=== PATIENT | male | born 1960 | race Caucasian/White ===

== ENCOUNTER 2017-01-25 13:15 | Emergency (ER) | payer MEDICARE, MEDICAID ==
[~2017-01-25] VITALS: Ht 175.3 cm; Wt 117.0 kg
[~2017-01-25 13:15] MED LIST: ASPI-1079 PO; CLOP75TA33 PO; DOCU-150 PO; EZET10TA PO; FOLI1TAB63 PO; OMEP20CA10 PO
[2017-01-25] MEDS ORDERED: LIDOCAINE HCL 1% 20ML VIAL (Pyxis) INJ MC ONE (14:15)
[2017-01-25 14:29] LABS: HEMATOCRIT. 36.8 % (42.0-52.0); HEMOGLOBIN. 12.4 g/dL (14.0-18.0); MEAN CORPUSCULAR HEMOGLOBIN 30.7 pg (28.0-32.0); MEAN CORPUSCULAR VOLUME 91.1 fL (80.0-94.0); PLATELET 254 x1000/uL (130-400); RED BLOOD CELL COUNT 4.04 mill/uL (4.7-6.1); RED CELL DISTRIBUTION WIDTH 14.6 % (11.6-14.6)
[2017-01-25 14:36] LABS: CHLORIDE 90 mEq/L (98-107); INR 1.1; PROTHROMBIN TIME 11.8 sec (9.4-11.6)
[2017-01-25 14:45] LABS: CARBON DIOXIDE 31 mEq/L (21-32)
[2017-01-25 14:51] VITALS: BP 147/59
[2017-01-25 15:53] LABS: PLATELET ESTIMATE NORMAL
== END 2017-01-25 16:33 | disposition home or self-care (01) ==
LOC: ER 13:15
DX: L02.215 Cutaneous abscess of perineum (principal); E11.22 Type 2 diabetes mellitus with diabetic chronic kidney disease; I12.0 Hypertensive chronic kidney disease with stage 5 chronic kidney disease or end stage renal disease; N18.6 End stage renal disease; Z99.2 Dependence on renal dialysis; Z79.82 Long term (current) use of aspirin; Z95.1 Presence of aortocoronary bypass graft; Z89.612 Acquired absence of left leg above knee; Z99.3 Dependence on wheelchair; Z89.421 Acquired absence of other right toe(s)
CPT/HCPCS: 10060; 36415; 80053; 85025; 85610; 99284; J3490; 56405

== ENCOUNTER 2018-06-27 09:18 | Emergency (ER) | payer MEDICARE, MEDICAID ==
[~2018-06-27] VITALS: Ht 175.3 cm; Wt 125.0 kg
[~2018-06-27 09:18] MED LIST changes: -EZET10TA PO; +ZET10 PO
[2018-06-27] MEDS ORDERED: SODIUM CHLORIDE 0.9% 1,000 ML IV NR (13:10)
[2018-06-27] MEDS ORDERED: PIPERACILLIN/TAZ 3.375G PREMIX 50 ML IV ONE (14:15)
[2018-06-27] MEDS ORDERED: VANCOMYCIN 1 G PREMIX 200 ML IV SCH (14:15)
[2018-06-27 14:53] LABS: BASOPHILS % 0.4 % (0.0-2.0); EOSINOPHILS % 0.3 % (0.0-5.0); HEMATOCRIT. 32.7 % (42.0-52.0); HEMOGLOBIN. 10.5 g/dL (14.0-18.0); LYMPHOCYTES % 8.9 % (20.0-50.0); MEAN CORPUSCULAR HEMOGLOBIN 30.6 pg (28.0-32.0); MEAN CORPUSCULAR VOLUME 95.2 fL (80.0-94.0); MONOCYTES % 9.2 % (2.0-8.0); NEUTROPHILS % 81.2 % (40.0-76.0); PLATELET 167 x1000/uL (130-400); RED BLOOD CELL COUNT 3.44 mill/uL (4.7-6.1); RED CELL DISTRIBUTION WIDTH 15.2 % (11.6-14.6)
[2018-06-27 14:59] LABS: PROTHROMBIN TIME 10.1 sec (9.1-11.1)
[2018-06-27 15:00] LABS: CHLORIDE 94 mEq/L (98-107)
[2018-06-27 15:07] LABS: ETHANOL BLOOD < 10 mg/dL
[2018-06-27] MEDS ORDERED: CLINDAMYCIN HCL 150MG CAPSULE PO ONE (15:15)
[2018-06-27 16:45] VITALS: BP 143/65
== END 2018-06-27 16:49 | disposition home or self-care (01) ==
LOC: ER 09:39
DX: M86.142 Other acute osteomyelitis, left hand (principal); E11.22 Type 2 diabetes mellitus with diabetic chronic kidney disease; I25.810 Atherosclerosis of coronary artery bypass graft(s) without angina pectoris; Z99.2 Dependence on renal dialysis; Z98.890 Other specified postprocedural states; Z79.82 Long term (current) use of aspirin; Z79.899 Other long term (current) drug therapy
CPT/HCPCS: 36415; 71045; 73130; 80053; 83605; 85025; 85610; 87040; 93005; 99284; G0482

== ENCOUNTER 2018-06-29 13:40 | Inpatient (IN) | payer MEDICARE, MEDICAID ==
[~2018-06-29] VITALS: Ht 175.3 cm; Wt 127.5 kg
[2018-06-30] MEDS ORDERED: MORPHINE SULFATE 4 MG/ML CPJ (NOT FOR IM USE) IV STA (00:19)
[2018-06-30] MEDS ORDERED: ONDANSETRON HCL 4MG/2ML INJ IV STA (00:19)
[2018-06-30] MEDS ORDERED: PIPERACILLIN/TAZ 3.375G PREMIX 50 ML IV ONE (00:30)
[2018-06-30] MEDS ORDERED: VANCOMYCIN 1 G PREMIX 200 ML IV ONE (00:30)
[2018-06-30] MEDS ORDERED: SODIUM CHLORIDE 0.9% 250 ML IV ONE (00:30)
[2018-06-30 01:01] LABS: BASOPHILS % 0.5 % (0.0-2.0); EOSINOPHILS % 0.4 % (0.0-5.0); HEMATOCRIT. 31.9 % (42.0-52.0); HEMOGLOBIN. 10.4 g/dL (14.0-18.0); LYMPHOCYTES % 10.7 % (20.0-50.0); MEAN CORPUSCULAR HEMOGLOBIN 31.1 pg (28.0-32.0); MEAN CORPUSCULAR VOLUME 95.7 fL (80.0-94.0); MEAN PLATELET VOLUME 9.6 fl (7.4-10.4); MONOCYTES % 8.7 % (2.0-8.0); NEUTROPHILS % 79.7 % (40.0-76.0); PLATELET 200 x1000/uL (130-400); RED BLOOD CELL COUNT 3.33 mill/uL (4.7-6.1)
[2018-06-30 01:05] LABS: CHLORIDE 94 mEq/L (98-107)
[2018-06-30 01:07] LABS: PROTHROMBIN TIME 10.3 sec (9.1-11.1)
[2018-06-30] MEDS ORDERED: INSULIN REGULAR (HUMULIN R) 300UNITS/3ML SUBCUT ONE (01:30)
[2018-06-30] MEDS ORDERED: INSU100I33 SQ (09:34)
[2018-06-30] MEDS ORDERED: INSU100I28 SQ (09:35)
[2018-06-30 09:45] VITALS: BP 152/76
[2018-06-30] MEDS ORDERED: MAGNESIUM/ALUMINUM HYDROXIDE/SIMETHICONE 30ML UDC PO PRN (10:15)
[2018-06-30] MEDS ORDERED: ACETAMINOPHEN 325MG TABLET PO PRN (10:15)
[2018-06-30] MEDS ORDERED: HYDROCODONE/ACETAMINOPHEN 5/325MG TABLET PO PRN (10:15)
[2018-06-30] MEDS ORDERED: CLONIDINE 0.1MG TABLET PO PRN (10:15)
[2018-06-30] MEDS ORDERED: ASPIRIN 81MG TABLET PO SCH (10:15)
[2018-06-30] MEDS ORDERED: DEXTROSE 50% WATER 50ML SYRINGE IV PRN (10:15)
[2018-06-30] MEDS: OMEPRAZOLE 20MG CAPSULE EXTENDED RELEASE PO SCH (10:47)
[2018-06-30] MEDS: EZETIMIBE 10MG TABLET PO SCH (10:47)
[2018-06-30 12:00] VITALS: BP 149/98
[2018-06-30] MEDS ORDERED: VANCOMYCIN 1 G PREMIX 200 ML IV SCH (12:30)
[2018-06-30] MEDS: INS NPH/REG HM 70-30 100 UNITS/ML 10ML VIAL (HUMULIN 70-30) SUBCUT SCH ×2 (12:54→16:57)
[2018-06-30] MEDS ORDERED: CARV3.1242 PO (15:45)
[2018-06-30] MEDS ORDERED: PIOG30TA27 MT (15:45)
[2018-06-30] MEDS ORDERED: GLIM1TAB2 PO (15:45)
[2018-06-30] MEDS ORDERED: ATOR-2 MT (15:45)
[2018-06-30] MEDS ORDERED: CALC667C MT (15:45)
[2018-06-30 16:00] VITALS: BP 135/60
[2018-06-30] MEDS: BLOOD SUGAR DIAGNOSTIC STRIP TEST SCH ×2 (16:52→21:17)
[2018-06-30] MEDS ORDERED: VANCOMYCIN 1500MG in DEXTROSE 5% WATER 250ML IV SCH (18:00)
[2018-06-30 20:00] VITALS: BP 138/72
[2018-06-30] MEDS ORDERED: ATORVASTATIN CALCIUM 40MG TABLET PO SCH (21:00)
[2018-06-30] MEDS: CARVEDILOL 12.5MG TABLET PO SCH (21:12)
[2018-06-30] MEDS ORDERED: INSULIN GLARGINE UD 100 UNITS/ML SYR SUBCUT SCH (22:00)
[2018-07-01] VITALS: BP 117/57
[2018-07-01 04:00] VITALS: BP 101/51
[2018-07-01] MEDS: BLOOD SUGAR DIAGNOSTIC STRIP TEST SCH ×2 (06:17→12:05)
[2018-07-01] MEDS: OMEPRAZOLE 20MG CAPSULE EXTENDED RELEASE PO SCH (06:18)
[2018-07-01 06:54] LABS: BASOPHILS % 0.6 % (0.0-2.0); EOSINOPHILS % 1.3 % (0.0-5.0); HEMATOCRIT. 28.4 % (42.0-52.0); HEMOGLOBIN. 9.5 g/dL (14.0-18.0); LYMPHOCYTES % 13.1 % (20.0-50.0); MEAN CORPUSCULAR HEMOGLOBIN 31.6 pg (28.0-32.0); MEAN CORPUSCULAR VOLUME 94.7 fL (80.0-94.0); MEAN PLATELET VOLUME 9.3 fl (7.4-10.4); MONOCYTES % 9.1 % (2.0-8.0); NEUTROPHILS % 75.9 % (40.0-76.0); PLATELET 216 x1000/uL (130-400); RED CELL DISTRIBUTION WIDTH 14.7 % (11.6-14.6)
[2018-07-01 07:09] LABS: PHOSPHORUS 5.3 mg/dL (2.5-4.9)
[2018-07-01 08:00] VITALS: BP 147/53
[2018-07-01] MEDS: EZETIMIBE 10MG TABLET PO SCH (08:49)
[2018-07-01] MEDS: CARVEDILOL 12.5MG TABLET PO SCH (08:50)
[2018-07-01] MEDS: INS NPH/REG HM 70-30 100 UNITS/ML 10ML VIAL (HUMULIN 70-30) SUBCUT SCH ×2 (08:50→12:25)
[2018-07-01] MEDS ORDERED: ASPIRIN 81MG TABLET PO SCH (09:00)
[2018-07-01 12:00] VITALS: BP 140/68
[2018-07-01] MEDS ORDERED: MORPHINE SULFATE 4 MG/ML CPJ (NOT FOR IM USE) IV PRN (13:45)
[2018-07-01 15:15] VITALS: BP 140/62
== END 2018-07-01 15:55 | disposition home or self-care (01) | DRG 299 ==
LOC: ER 14:00 → 6EST 06-30 05:51 → ENRESERV 06-30 07:50
PROVIDERS: ADMIT Family Medicine Adult Medicine; ATTEND Family Medicine Adult Medicine
DX: E11.52 Type 2 diabetes mellitus with diabetic peripheral angiopathy with gangrene (principal); N18.6 End stage renal disease; E87.1 Hypo-osmolality and hyponatremia; I13.11 Hypertensive heart and chronic kidney disease without heart failure, with stage 5 chronic kidney disease, or end stage renal disease; M86.8X4 Other osteomyelitis, hand; I12.0 Hypertensive chronic kidney disease with stage 5 chronic kidney disease or end stage renal disease; Z68.41 Body mass index [BMI] 40.0-44.9, adult; E11.22 Type 2 diabetes mellitus with diabetic chronic kidney disease; I73.9 Peripheral vascular disease, unspecified; D64.9 Anemia, unspecified; Z95.1 Presence of aortocoronary bypass graft; B35.1 Tinea unguium; E11.319 Type 2 diabetes mellitus with unspecified diabetic retinopathy without macular edema; E11.69 Type 2 diabetes mellitus with other specified complication; E78.5 Hyperlipidemia, unspecified; I25.10 Atherosclerotic heart disease of native coronary artery without angina pectoris; K21.9 Gastro-esophageal reflux disease without esophagitis; Z79.4 Long term (current) use of insulin; Z82.49 Family history of ischemic heart disease and other diseases of the circulatory system; Z89.512 Acquired absence of left leg below knee; Z89.611 Acquired absence of right leg above knee; Z83.3 Family history of diabetes mellitus; Z89.612 Acquired absence of left leg above knee; Z99.2 Dependence on renal dialysis; E66.01 Morbid (severe) obesity due to excess calories; E11.51 Type 2 diabetes mellitus with diabetic peripheral angiopathy without gangrene
CPT/HCPCS: 36415; 71045; 73130; 80048; 80061; 82962; 83036; 83605; 83735; 84100; 93005; 93306; 99284; 99285; G0482; J1815; J2270; J2405; J2543; J3370; J7050; J7060

== ENCOUNTER 2018-07-05 14:37 | Emergency (ER) | payer MEDICARE, MEDICAID ==
[~2018-07-05] VITALS: Ht 175.3 cm; Wt 125.0 kg
[~2018-07-05 14:37] MED LIST changes: +ATOR-2 MT; +CALC667C MT; +CARV3.1242 PO; +GLIM1TAB2 PO; +INSU100I28 SQ; +INSU100I33 SQ; +PIOG30TA27 MT
[2018-07-05] MEDS ORDERED: MORPHINE SULFATE 4 MG/ML CPJ (NOT FOR IM USE) IV STA (23:07)
[2018-07-05] MEDS ORDERED: VANCOMYCIN 1 G PREMIX 200 ML IV SCH (23:15)
[2018-07-05] MEDS ORDERED: PIPERACILLIN/TAZOBACTAM 3.375GM/50ML PREMIX IV ONE (23:15)
[2018-07-05] MEDS ORDERED: PIPERACILLIN/TAZ 3.375G PREMIX 50 ML IV NR (23:18)
[2018-07-05 23:49] LABS: BASOPHILS % 1.4 % (0.0-2.0); HEMOGLOBIN. 10.1 g/dL (14.0-18.0); LYMPHOCYTES % 9.9 % (20.0-50.0); MEAN CORPUSCULAR HEMOGLOBIN 31.1 pg (28.0-32.0); MEAN CORPUSCULAR VOLUME 95.7 fL (80.0-94.0); MEAN PLATELET VOLUME 8.6 fl (7.4-10.4); NEUTROPHILS % 77.7 % (40.0-76.0); PLATELET 295 x1000/uL (130-400); RED BLOOD CELL COUNT 3.24 mill/uL (4.7-6.1); RED CELL DISTRIBUTION WIDTH 14.8 % (11.6-14.6)
[2018-07-05 23:57] LABS: CHLORIDE 95 mEq/L (98-107)
[2018-07-06] MEDS ORDERED: MORPHINE SULFATE 4 MG/ML CPJ (NOT FOR IM USE) IV ONE ×2 (05:30→15:30)
[2018-07-06] MEDS ORDERED: ONDANSETRON HCL 4MG/2ML INJ IV ONE (15:30)
[2018-07-07] MEDS ORDERED: MORPHINE SULFATE 4 MG/ML CPJ (NOT FOR IM USE) IV ONE (01:00)
[2018-07-07] MEDS ORDERED: PIPERACILLIN/TAZ 3.375G PREMIX 50 ML IV ONE (08:00)
[2018-07-07 08:30] LABS: BASOPHILS % 0.6 % (0.0-2.0); EOSINOPHILS % 1.3 % (0.0-5.0); HEMATOCRIT. 31.1 % (42.0-52.0); HEMOGLOBIN. 10.3 g/dL (14.0-18.0); LYMPHOCYTES % 10.3 % (20.0-50.0); MEAN CORPUSCULAR HEMOGLOBIN 31.4 pg (28.0-32.0); MEAN CORPUSCULAR VOLUME 95.1 fL (80.0-94.0); MONOCYTES % 7.5 % (2.0-8.0); NEUTROPHILS % 80.3 % (40.0-76.0); PLATELET 326 x1000/uL (130-400); RED BLOOD CELL COUNT 3.27 mill/uL (4.7-6.1)
[2018-07-07 08:35] LABS: CHLORIDE 95 mEq/L (98-107)
[2018-07-07] MEDS ORDERED: VANCOMYCIN 1,750 MG in SODIUM CHLORIDE 0.9% 250 ML IV SCH (10:00)
[2018-07-07 12:00] VITALS: BP 127/59
== END 2018-07-07 12:31 | disposition home or self-care (01) ==
LOC: ER 14:37
DX: M86.8X4 Other osteomyelitis, hand (principal); M65.842 Other synovitis and tenosynovitis, left hand; E11.22 Type 2 diabetes mellitus with diabetic chronic kidney disease; N18.6 End stage renal disease; Z99.2 Dependence on renal dialysis
CPT/HCPCS: 36415; 71045; 80053; 85025; 87040; 96365; 96367; 96375; 96376; 99284; J2270; J2543; J3370; J7050

== ENCOUNTER 2018-10-04 10:33 | Inpatient (IN) | payer MEDICARE, MEDICAID ==
[~2018-10-04] VITALS: Ht 175.3 cm; Wt 130.2 kg
[2018-10-04 12:08] LABS: BASOPHILS % 0.7 % (0.0-2.0); CHLORIDE 101 mEq/L (98-107); EOSINOPHILS % 1.7 % (0.0-5.0); HEMATOCRIT. 41.9 % (42.0-52.0); HEMOGLOBIN. 13.7 g/dL (14.0-18.0); LYMPHOCYTES % 16.3 % (20.0-50.0); MEAN CORPUSCULAR HEMOGLOBIN 31.2 pg (28.0-32.0); MEAN CORPUSCULAR VOLUME 95.7 fL (80.0-94.0); MEAN PLATELET VOLUME 9.5 fl (7.4-10.4); MONOCYTES % 10.7 % (2.0-8.0); NEUTROPHILS % 70.6 % (40.0-76.0); PLATELET 169 x1000/uL (130-400); RED BLOOD CELL COUNT 4.38 mill/uL (4.7-6.1); RED CELL DISTRIBUTION WIDTH 17.5 % (11.6-14.6)
[2018-10-04 12:11] LABS: PARTIAL THROMBOPLASTIN TIME 25.9 sec (23.4-31.0); PROTHROMBIN TIME 10.6 sec (9.6-11.0)
[2018-10-04] MEDS ORDERED: ONDANSETRON HCL 4MG/2ML INJ IV PRN (13:00)
[2018-10-04] MEDS ORDERED: ACETAMINOPHEN 325MG TABLET PO PRN (13:00)
[2018-10-04] MEDS ORDERED: DOCUSATE SODIUM 100MG CAPSULE PO PRN (13:00)
[2018-10-04] MEDS ORDERED: CLONIDINE 0.1MG TABLET PO PRN (13:00)
[2018-10-04] MEDS ORDERED: HYDROMORPHONE HCL/PF 2MG/ML CPJ IV PRN (13:00)
[2018-10-04] MEDS: CALCIUM ACETATE 667MG CAPSULE PO SCH (17:45)
[2018-10-04 22:00] VITALS: BP 151/65
[2018-10-04 22:30] VITALS: BP 151/65
[2018-10-04] MEDS: CARVEDILOL 3.125 MG TABLET PO SCH (23:19)
[2018-10-04] MEDS: ATORVASTATIN CALCIUM 40MG TABLET PO SCH (23:20)
[2018-10-04] MEDS: INSULIN GLARGINE UD 100 UNITS/ML SYR SUBCUT SCH (23:25)
[2018-10-05] VITALS (13 sets, daily range): BP systolic 110–160; BP diastolic 58–92
[2018-10-05] MEDS ORDERED: DEXTROSE 50% WATER 50ML SYRINGE IV PRN (03:00)
[2018-10-05] MEDS: OMEPRAZOLE 20MG CAPSULE EXTENDED RELEASE PO SCH (06:01)
[2018-10-05] MEDS: INSULIN LISPRO 100 UNITS/ML SUBCUT SCH ×4 (06:05→20:59)
[2018-10-05 06:55] LABS: BASOPHILS % 0.7 % (0.0-2.0); EOSINOPHILS % 1.9 % (0.0-5.0); HEMOGLOBIN. 12.4 g/dL (14.0-18.0); LYMPHOCYTES % 22.2 % (20.0-50.0); MEAN CORPUSCULAR HEMOGLOBIN 31.2 pg (28.0-32.0); MEAN PLATELET VOLUME 9.7 fl (7.4-10.4); MONOCYTES % 11.2 % (2.0-8.0); PLATELET 159 x1000/uL (130-400); RED BLOOD CELL COUNT 3.96 mill/uL (4.7-6.1); RED CELL DISTRIBUTION WIDTH 17.5 % (11.6-14.6)
[2018-10-05] MEDS ORDERED: CEFAZOLIN 1000MG PREMIX 50 ML IV SCH (07:00)
[2018-10-05 07:04] LABS: CHLORIDE 101 mEq/L (98-107)
[2018-10-05] MEDS: GLIMEPIRIDE 1MG TABLET PO SCH (07:10)
[2018-10-05 07:13] LABS: HDL CHOLESTEROL 32 mg/dL (40-59); LDL CHOLESTEROL 54 mg/dL (5-100)
[2018-10-05] MEDS: FOLIC ACID/VITAMIN B COMP W-C TABLET PO SCH (09:00)
[2018-10-05] MEDS: CARVEDILOL 3.125 MG TABLET PO SCH ×2 (09:00→20:58)
[2018-10-05] MEDS ORDERED: SODIUM BICARBONATE 4% (2.4MEQ) 5ML VIAL IV ONE (09:31)
[2018-10-05] MEDS ORDERED: LIDOCAINE HCL 1% 20ML VIAL (Pyxis) INJ ONE (09:31)
[2018-10-05] MEDS ORDERED: FENTANYL CITRATE/PF 50MCG/ML 2ML VIAL ONE (09:31)
[2018-10-05] MEDS ORDERED: IOHEXOL-300 100 ML BOTTLE ONE (09:31)
[2018-10-05] MEDS: BLOOD SUGAR DIAGNOSTIC STRIP TEST SCH ×4 (12:10→20:51)
[2018-10-05] MEDS: PIOGLITAZONE 15MG TABLET PO SCH (14:10)
[2018-10-05] MEDS: CALCIUM ACETATE 667MG CAPSULE PO SCH (19:11)
[2018-10-05] MEDS: ATORVASTATIN CALCIUM 40MG TABLET PO SCH (20:58)
[2018-10-05] MEDS: INSULIN GLARGINE UD 100 UNITS/ML SYR SUBCUT SCH (22:59)
[2018-10-06] VITALS: BP 144/55
[2018-10-06 04:00] VITALS: BP 144/61
[2018-10-06] MEDS: OMEPRAZOLE 20MG CAPSULE EXTENDED RELEASE PO SCH (06:21)
[2018-10-06] MEDS: GLIMEPIRIDE 1MG TABLET PO SCH (06:21)
[2018-10-06] MEDS: BLOOD SUGAR DIAGNOSTIC STRIP TEST SCH ×5 (06:21→21:00)
[2018-10-06] MEDS: INSULIN LISPRO 100 UNITS/ML SUBCUT SCH ×4 (06:22→21:00)
[2018-10-06 07:12] LABS: BASOPHILS % 0.5 % (0.0-2.0); EOSINOPHILS % 1.8 % (0.0-5.0); HEMATOCRIT. 37.3 % (42.0-52.0); LYMPHOCYTES % 19.9 % (20.0-50.0); MEAN CORPUSCULAR HEMOGLOBIN 30.8 pg (28.0-32.0); MEAN CORPUSCULAR VOLUME 95.6 fL (80.0-94.0); MEAN PLATELET VOLUME 9.8 fl (7.4-10.4); MONOCYTES % 9.7 % (2.0-8.0); NEUTROPHILS % 68.1 % (40.0-76.0); PLATELET 138 x1000/uL (130-400); RED CELL DISTRIBUTION WIDTH 17.1 % (11.6-14.6)
[2018-10-06] MEDS: CALCIUM ACETATE 667MG CAPSULE PO SCH ×3 (07:40→18:10)
[2018-10-06 08:00] VITALS: BP 128/42
[2018-10-06] MEDS: FOLIC ACID/VITAMIN B COMP W-C TABLET PO SCH (09:00)
[2018-10-06] MEDS: PIOGLITAZONE 15MG TABLET PO SCH (09:00)
[2018-10-06] MEDS: CARVEDILOL 3.125 MG TABLET PO SCH ×2 (09:00→22:07)
[2018-10-06] MEDS ORDERED: PAPAVERINE HCL 30 MG/ML 2ML IV ONE (12:03)
[2018-10-06] MEDS ORDERED: LIDOCAINE HCL 1% 20ML VIAL (Pyxis) INJ ONE (12:04)
[2018-10-06] MEDS ORDERED: BACITRACIN 15GM TUBE TOP ONE (12:04)
[2018-10-06] MEDS ORDERED: BUPIVACAINE HCL/PF 0.5% (5MG/ML) 10ML ONE (12:05)
[2018-10-06] MEDS ORDERED: THROMBIN (BOVINE) 5000 UNITS/VIAL TOP ONE (12:05)
[2018-10-06] MEDS ORDERED: BACITRACIN 50,000 UNITS/VIAL ONE (12:05)
[2018-10-06] MEDS ORDERED: HEPARIN SODIUM 1,000 UNIT/1ML VIAL IV ONE ×2 (12:06→12:56)
[2018-10-06] MEDS ORDERED: HEPARIN 5000 UNITS/ML VIAL ONE (12:07)
[2018-10-06] MEDS ORDERED: NORMAL SALINE 0.9% 10 ML SYR ONE (12:08)
[2018-10-06 12:18] VITALS: BP 131/56
[2018-10-06] MEDS ORDERED: FENTANYL CITRATE/PF 50MCG/ML 2ML VIAL ONE ×2 (13:05→15:34)
[2018-10-06] MEDS ORDERED: MIDAZOLAM HCL 2 MG/2 ML VIAL ONE (13:06)
[2018-10-06] MEDS ORDERED: PROPOFOL 200MG/20ML VIAL IV ONE ×2 (13:06→13:07)
[2018-10-06] MEDS ORDERED: ROCURONIUM BROMIDE 10MG/ML VIAL 5ML IV ONE (13:23)
[2018-10-06] MEDS ORDERED: EPHEDRINE SULFATE 50MG/ML VIAL ONE (13:38)
[2018-10-06] MEDS ORDERED: HYDROCODONE/ACETAMINOPHEN 5/325MG TABLET PO PRN ×2 (16:30)
[2018-10-06] MEDS ORDERED: HYDROMORPHONE HCL/PF 2MG/ML CPJ IV PRN (17:15)
[2018-10-06] MEDS ORDERED: ONDANSETRON HCL 4MG/2ML INJ IV PRN (17:15)
[2018-10-06] MEDS ORDERED: FENTANYL CITRATE/PF 50MCG/ML 2ML VIAL IV PRN (17:15)
[2018-10-06 20:00] VITALS: BP 108/49
[2018-10-06] MEDS: ATORVASTATIN CALCIUM 40MG TABLET PO SCH (22:06)
[2018-10-06] MEDS ORDERED: INSULIN GLARGINE UD 100 UNITS/ML SYR SUBCUT SCH (23:00)
[2018-10-07] VITALS: BP 130/50
[2018-10-07 04:00] VITALS: BP 137/43
[2018-10-07 06:12] LABS: BASOPHILS % 0.3 % (0.0-2.0); EOSINOPHILS % 1.2 % (0.0-5.0); HEMATOCRIT. 37.6 % (42.0-52.0); HEMOGLOBIN. 12.3 g/dL (14.0-18.0); LYMPHOCYTES % 13.4 % (20.0-50.0); MEAN CORPUSCULAR HEMOGLOBIN 31.4 pg (28.0-32.0); MEAN CORPUSCULAR VOLUME 95.9 fL (80.0-94.0); MEAN PLATELET VOLUME 9.7 fl (7.4-10.4); NEUTROPHILS % 75.1 % (40.0-76.0); PLATELET 153 x1000/uL (130-400); RED BLOOD CELL COUNT 3.92 mill/uL (4.7-6.1); RED CELL DISTRIBUTION WIDTH 17.2 % (11.6-14.6)
[2018-10-07] MEDS: BLOOD SUGAR DIAGNOSTIC STRIP TEST SCH ×3 (06:17→17:31)
[2018-10-07 08:00] VITALS: BP 113/49
[2018-10-07] MEDS: INSULIN LISPRO 100 UNITS/ML SUBCUT SCH ×3 (08:38→17:31)
[2018-10-07] MEDS: PIOGLITAZONE 15MG TABLET PO SCH (08:40)
[2018-10-07] MEDS: OMEPRAZOLE 20MG CAPSULE EXTENDED RELEASE PO SCH (08:40)
[2018-10-07] MEDS: FOLIC ACID/VITAMIN B COMP W-C TABLET PO SCH (08:40)
[2018-10-07] MEDS: CALCIUM ACETATE 667MG CAPSULE PO SCH ×3 (08:40→17:53)
[2018-10-07] MEDS: CARVEDILOL 3.125 MG TABLET PO SCH (08:41)
[2018-10-07] MEDS: GLIMEPIRIDE 1MG TABLET PO SCH (10:35)
[2018-10-07 12:00] VITALS: BP 118/54
[2018-10-07 15:10] VITALS: BP 118/54
[2018-10-07 16:00] VITALS: BP 126/63
[2018-10-08] MEDS ORDERED: FAMOTIDINE 20MG TABLET PO SCH (09:00)
== END 2018-10-07 18:40 | disposition home or self-care (01) | DRG 252 ==
LOC: ER 10:33 → SUPCPDRO 10:57 → 8WST 12:59 → EDBEDREQ 13:08 → ENRESERV 21:03 → 7WST 10-06 17:38
PROVIDERS: ADMIT Internal Medicine Nephrology; ATTEND Internal Medicine Nephrology
PROC: 057Y3ZZ Dilation of Upper Vein, Percutaneous Approach (ICD-10-PCS; principal; 2018-10-05)
PROC: B51W1ZZ Fluoroscopy of Dialysis Shunt/Fistula using Low Osmolar Contrast (ICD-10-PCS; 2018-10-05)
PROC: B51N1ZA Fluoroscopy of Left Upper Extremity Veins using Low Osmolar Contrast, Guidance (ICD-10-PCS; 2018-10-05)
PROC: B51V1ZA Fluoroscopy of Other Veins using Low Osmolar Contrast, Guidance (ICD-10-PCS; 2018-10-05)
PROC: B31J1ZZ Fluoroscopy of Left Upper Extremity Arteries using Low Osmolar Contrast (ICD-10-PCS; 2018-10-05)
PROC: 05PY0JZ Removal of Synthetic Substitute from Upper Vein, Open Approach (ICD-10-PCS; 2018-10-06)
PROC: 031C0JF Bypass Left Radial Artery to Lower Arm Vein with Synthetic Substitute, Open Approach (ICD-10-PCS; 2018-10-06)
PROC: 5A1D70Z Performance of Urinary Filtration, Intermittent, Less than 6 Hours Per Day (ICD-10-PCS; 2018-10-06)
PROC: 5A1D70Z Performance of Urinary Filtration, Intermittent, Less than 6 Hours Per Day (ICD-10-PCS; 2018-10-07)
DX: T82.898A Other specified complication of vascular prosthetic devices, implants and grafts, initial encounter (principal); N18.6 End stage renal disease; I13.11 Hypertensive heart and chronic kidney disease without heart failure, with stage 5 chronic kidney disease, or end stage renal disease; T82.838A Hemorrhage due to vascular prosthetic devices, implants and grafts, initial encounter; E11.319 Type 2 diabetes mellitus with unspecified diabetic retinopathy without macular edema; E11.51 Type 2 diabetes mellitus with diabetic peripheral angiopathy without gangrene; I25.10 Atherosclerotic heart disease of native coronary artery without angina pectoris; E78.5 Hyperlipidemia, unspecified; H54.7 Unspecified visual loss; I25.5 Ischemic cardiomyopathy; E11.22 Type 2 diabetes mellitus with diabetic chronic kidney disease; Y83.2 Surgical operation with anastomosis, bypass or graft as the cause of abnormal reaction of the patient, or of later complication, without mention of misadventure at the time of the procedure; Y92.89 Other specified places as the place of occurrence of the external cause; Z89.512 Acquired absence of left leg below knee; Z95.5 Presence of coronary angioplasty implant and graft; Z79.82 Long term (current) use of aspirin; Z79.02 Long term (current) use of antithrombotics/antiplatelets; Z95.1 Presence of aortocoronary bypass graft; Z99.2 Dependence on renal dialysis; Z89.511 Acquired absence of right leg below knee; Z83.3 Family history of diabetes mellitus; Z82.49 Family history of ischemic heart disease and other diseases of the circulatory system; Z79.4 Long term (current) use of insulin; Z91.011 Allergy to milk products; Z89.022 Acquired absence of left finger(s); Z79.899 Other long term (current) drug therapy
CPT/HCPCS: 36415; 36901; 71045; 80048; 80061; 82962; 84484; 88300; 93308; 93970; 99285; C1725; C1757; C1766; C1768; C1769; J1170; J1644; J1815; J2250; J2440; J2704; J3010; J3490; J7050; Q9967

== ENCOUNTER 2018-10-18 15:42 | Emergency (ER) | payer MEDICARE, MEDICAID ==
[~2018-10-18] VITALS: Ht 175.3 cm; Wt 122.0 kg
[2018-10-18] MEDS ORDERED: FAMOTIDINE 20MG TABLET PO ONE (18:15)
[2018-10-18] MEDS ORDERED: DIPHENHYDRAMINE 50MG/ML VIAL IV ONE (18:15)
[2018-10-18] MEDS ORDERED: PREDNISONE 20MG TABLET PO ONE (18:15)
[2018-10-18] MEDS ORDERED: DIPHENHYDRAMINE 25MG CAPSULE PO ONE (18:15)
[2018-10-18 18:42] LABS: BASOPHILS % 0.9 % (0.0-2.0); EOSINOPHILS % 0.9 % (0.0-5.0); HEMATOCRIT. 35.1 % (42.0-52.0); HEMOGLOBIN. 11.5 g/dL (14.0-18.0); LYMPHOCYTES % 14.5 % (20.0-50.0); MEAN CORPUSCULAR HEMOGLOBIN 31.1 pg (28.0-32.0); MEAN PLATELET VOLUME 9.1 fl (7.4-10.4); NEUTROPHILS % 75.7 % (40.0-76.0); PLATELET 210 x1000/uL (130-400); RED CELL DISTRIBUTION WIDTH 17.3 % (11.6-14.6)
[2018-10-18 18:46] LABS: CHLORIDE 100 mEq/L (98-107)
[2018-10-18] MEDS ORDERED: ALBUTEROL (0.5%) 2.5MG/0.5ML NEB HHN ONE (20:15)
[2018-10-18] MEDS ORDERED: IPRATROPIUM BROMIDE (0.02%) 0.5MG/2.5ML NEB HHN ONE (20:15)
[2018-10-18] MEDS ORDERED: INSULIN LISPRO 100 UNITS/ML SUBCUT ONE (20:45)
[2018-10-18 22:50] VITALS: BP 158/44
== END 2018-10-18 22:50 | disposition home or self-care (01) ==
LOC: ER 16:41
DX: L50.0 Allergic urticaria (principal)
CPT/HCPCS: 36415; 71045; 80053; 84484; 85025; 93005; 96372; 96374; 99284; J1200; J1815; J7512; Q0163

== ENCOUNTER 2018-12-29 09:45 | Day surgery (SDC) | payer MEDICARE, MEDICAID ==
[~2018-12-29] VITALS: Ht 175.3 cm; Wt 121.0 kg
[~2018-12-29 09:45] MED LIST changes: -OMEP20CA10 PO; +OMEP20CA5 PO
[2018-12-29] MEDS ORDERED: LIDOCAINE HCL 1% 20ML VIAL (Pyxis) INJ ONE ×2 (12:57→14:25)
[2018-12-29] MEDS ORDERED: BACITRACIN 15GM TUBE TOP ONE (12:57)
[2018-12-29] MEDS ORDERED: HEPARIN SODIUM 1,000 UNIT/1ML VIAL IV ONE ×2 (12:58→14:24)
[2018-12-29] MEDS ORDERED: BACITRACIN 50,000 UNITS/VIAL ONE ×2 (12:58→14:25)
[2018-12-29] MEDS ORDERED: THROMBIN (BOVINE) 5000 UNITS/VIAL TOP ONE ×2 (12:58→14:24)
[2018-12-29] MEDS ORDERED: BUPIVACAINE HCL/PF 0.5% (5MG/ML) 10ML ONE ×2 (12:58→14:25)
[2018-12-29] MEDS ORDERED: HEPARIN 5000 UNITS/ML VIAL ONE (14:23)
[2018-12-29] MEDS ORDERED: ROPIVACAINE HCL 10MG/ML 20 ML VIAL EPI ONE (15:40)
[2018-12-29] MEDS ORDERED: MIDAZOLAM HCL 5 MG/5 ML VIAL ONE (15:42)
[2018-12-29] MEDS ORDERED: PROPOFOL 200MG/20ML VIAL IV ONE ×2 (16:21→17:11)
[2018-12-29] MEDS ORDERED: SUCCINYLCHOLINE CHLORIDE 200MG/10ML IV ONE (16:27)
[2018-12-29] MEDS ORDERED: ROCURONIUM BROMIDE 10MG/ML VIAL 5ML IV ONE (16:27)
[2018-12-29] MEDS ORDERED: FENTANYL CITRATE/PF 50MCG/ML 2ML VIAL ONE (17:11)
[2018-12-29] MEDS ORDERED: SODIUM CHLORIDE 0.9% 1,000 ML IV ONE (17:36)
[2018-12-29] MEDS ORDERED: HYDROMORPHONE HCL/PF 2MG/ML CPJ IV PRN (17:45)
[2018-12-29] MEDS ORDERED: MEPERIDINE HCL/PF 25MG/ML CPJ IV PRN (17:45)
[2018-12-29] MEDS ORDERED: ONDANSETRON HCL 4MG/2ML INJ IV PRN (17:45)
[2018-12-29] MEDS ORDERED: HYDROCODONE/ACETAMINOPHEN 5/325MG TABLET PO PRN ×2 (18:30)
[2018-12-29] MEDS ORDERED: HEPARIN SODIUM 1,000 UNIT/1ML VIAL IV NR (19:00)
== END 2018-12-29 20:50 | disposition home or self-care (01) ==
LOC: OR 09:45
PROVIDERS: ATTEND Surgery Vascular Surgery
DX: I12.0 Hypertensive chronic kidney disease with stage 5 chronic kidney disease or end stage renal disease (principal); E11.22 Type 2 diabetes mellitus with diabetic chronic kidney disease; N18.6 End stage renal disease; E11.51 Type 2 diabetes mellitus with diabetic peripheral angiopathy without gangrene; E11.319 Type 2 diabetes mellitus with unspecified diabetic retinopathy without macular edema; E66.01 Morbid (severe) obesity due to excess calories; J44.9 Chronic obstructive pulmonary disease, unspecified; D64.9 Anemia, unspecified; Z98.890 Other specified postprocedural states; Z79.899 Other long term (current) drug therapy
CPT/HCPCS: 36415; 36830; 82962; 84132; C1768; J0330; J1644; J2250; J2704; J2795; J3010; J3490; J7040

== ENCOUNTER 2019-02-22 11:29 | Day surgery (SDC) | payer MEDICARE, MEDICAID ==
[~2019-02-22] VITALS: Ht 175.3 cm; Wt 121.0 kg
[~2019-02-22 11:29] MED LIST changes: +EZET10TA13 PO; -OMEP20CA5 PO; -PIOG30TA27 MT; -ZET10 PO
[2019-02-22 12:32] LABS: BASOPHILS % 0.8 % (0.0-2.0); EOSINOPHILS % 1.9 % (0.0-5.0); HEMATOCRIT. 38.7 % (42.0-52.0); HEMOGLOBIN. 12.4 g/dL (14.0-18.0); LYMPHOCYTES % 16.4 % (20.0-50.0); MEAN CORPUSCULAR HEMOGLOBIN 30.6 pg (28.0-32.0); MEAN CORPUSCULAR VOLUME 95.4 fL (80.0-94.0); MEAN PLATELET VOLUME 9.6 fl (7.4-10.4); NEUTROPHILS % 71.9 % (40.0-76.0); PLATELET 171 x1000/uL (130-400); RED BLOOD CELL COUNT 4.06 mill/uL (4.7-6.1); RED CELL DISTRIBUTION WIDTH 17.4 % (11.6-14.6)
[2019-02-22] MEDS ORDERED: SODIUM CHLORIDE 0.9% 500 ML IV ONE (13:15)
[2019-02-22] MEDS ORDERED: BUPIVACAINE HCL/PF 0.5% (5MG/ML) 10ML ONE (16:38)
[2019-02-22] MEDS ORDERED: SODIUM CHLORIDE 0.9% 1,000 ML ONE (16:39)
[2019-02-22] MEDS ORDERED: LIDOCAINE HCL/PF 1% 10 MG/ML 5ML VIAL ONE ×2 (16:39→17:01)
[2019-02-22] MEDS ORDERED: HEPARIN SODIUM 1,000 UNIT/1ML VIAL IV ONE ×2 (16:39→17:22)
[2019-02-22] MEDS ORDERED: NORMAL SALINE 0.9% 10 ML SYR ONE (16:39)
[2019-02-22] MEDS ORDERED: BACITRACIN 50,000 UNITS/VIAL ONE (16:39)
[2019-02-22] MEDS ORDERED: THROMBIN (BOVINE) 5000 UNITS/VIAL TOP ONE (16:39)
[2019-02-22] MEDS ORDERED: ROPIVACAINE HCL 10MG/ML 20 ML VIAL EPI ONE (16:52)
[2019-02-22] MEDS ORDERED: FENTANYL CITRATE/PF 50MCG/ML 2ML VIAL ONE (16:59)
[2019-02-22] MEDS ORDERED: GLYCOPYRROLATE 0.2 MG/ML 2ML VIAL ONE (16:59)
[2019-02-22] MEDS ORDERED: PROPOFOL 200MG/20ML VIAL IV ONE (16:59)
[2019-02-22] MEDS ORDERED: MIDAZOLAM HCL 2 MG/2 ML VIAL ONE (16:59)
[2019-02-22] MEDS ORDERED: SUCCINYLCHOLINE CHLORIDE 200MG/10ML IV ONE (17:01)
[2019-02-22] MEDS ORDERED: ONDANSETRON HCL 4MG/2ML INJ ONE (17:01)
[2019-02-22] MEDS ORDERED: METOCLOPRAMIDE HCL 10MG/2ML VIAL ONE (17:01)
[2019-02-22] MEDS ORDERED: BACITRACIN 15GM TUBE TOP ONE (17:22)
[2019-02-22] MEDS ORDERED: PAPAVERINE HCL 30 MG/ML 2ML IV ONE (17:57)
[2019-02-22] MEDS ORDERED: SODIUM CHLORIDE 0.9% 1,000 ML IV ONE (19:21)
[2019-02-22] MEDS ORDERED: HYDROMORPHONE HCL/PF 2MG/ML CPJ IV PRN (19:30)
[2019-02-22] MEDS ORDERED: MEPERIDINE HCL/PF 25MG/ML CPJ IV PRN (19:30)
[2019-02-22] MEDS ORDERED: HYDROCODONE/ACETAMINOPHEN 5/325MG TABLET PO PRN (19:30)
[2019-02-22] MEDS ORDERED: ONDANSETRON HCL 4MG/2ML INJ IV PRN (19:30)
[2019-02-22] MEDS ORDERED: HEPARIN SODIUM 1,000 UNIT/1ML VIAL IV NR (21:00)
== END 2019-02-22 21:30 | disposition home or self-care (01) ==
LOC: OR 11:29
PROVIDERS: ATTEND Surgery Vascular Surgery
DX: I12.0 Hypertensive chronic kidney disease with stage 5 chronic kidney disease or end stage renal disease (principal); E11.22 Type 2 diabetes mellitus with diabetic chronic kidney disease; N18.6 End stage renal disease; E66.01 Morbid (severe) obesity due to excess calories; I25.10 Atherosclerotic heart disease of native coronary artery without angina pectoris; E11.51 Type 2 diabetes mellitus with diabetic peripheral angiopathy without gangrene; E78.00 Pure hypercholesterolemia, unspecified; D64.9 Anemia, unspecified; E11.69 Type 2 diabetes mellitus with other specified complication; G93.40 Encephalopathy, unspecified; Z99.2 Dependence on renal dialysis; Z98.890 Other specified postprocedural states; Z79.899 Other long term (current) drug therapy; Z68.39 Body mass index [BMI] 39.0-39.9, adult; Z91.011 Allergy to milk products; Z79.82 Long term (current) use of aspirin; Z79.4 Long term (current) use of insulin; Z83.3 Family history of diabetes mellitus; Z82.49 Family history of ischemic heart disease and other diseases of the circulatory system
CPT/HCPCS: 36415; 36818; 80048; 82962; 85025; 93005; J0330; J1644; J2250; J2405; J2440; J2704; J2765; J2795; J3010; J3490; J7030; J7040

== ENCOUNTER 2019-04-26 05:24 | Day surgery (SDC) | payer MEDICARE, MEDICAID ==
[~2019-04-26] VITALS: Ht 175.3 cm; Wt 120.7 kg
[~2019-04-26 05:24] MED LIST changes: +FOLI-43 PO; -FOLI1TAB63 PO
[2019-04-26] MEDS ORDERED: SODIUM CHLORIDE 0.9% 500 ML IV ONE (05:30)
[2019-04-26 06:10] LABS: BASOPHILS % 0.6 % (0.0-2.0); EOSINOPHILS % 1.9 % (0.0-5.0); HEMATOCRIT. 32.2 % (42.0-52.0); HEMOGLOBIN. 10.7 g/dL (14.0-18.0); LYMPHOCYTES % 15.3 % (20.0-50.0); MEAN CORPUSCULAR VOLUME 93.3 fL (80.0-94.0); MEAN PLATELET VOLUME 9.2 fl (7.4-10.4); MONOCYTES % 7.2 % (2.0-8.0); PLATELET 156 x1000/uL (130-400); RED BLOOD CELL COUNT 3.45 mill/uL (4.7-6.1)
[2019-04-26 06:29] LABS: INR 1.1; PARTIAL THROMBOPLASTIN TIME 26.4 sec (23.4-31.0); PROTHROMBIN TIME 10.9 sec (9.6-11.0)
[2019-04-26] MEDS ORDERED: PAPAVERINE HCL 30 MG/ML 2ML IV ONE (06:29)
[2019-04-26] MEDS ORDERED: NORMAL SALINE 0.9% 10 ML SYR ONE (06:30)
[2019-04-26] MEDS ORDERED: HEPARIN SODIUM 1,000 UNIT/1ML VIAL IV ONE (06:30)
[2019-04-26] MEDS ORDERED: LIDOCAINE HCL 1% 20ML VIAL (Pyxis) INJ ONE ×2 (06:30→08:18)
[2019-04-26] MEDS ORDERED: BACITRACIN 15GM TUBE TOP ONE (06:30)
[2019-04-26] MEDS ORDERED: BUPIVACAINE HCL/PF 0.5% (5MG/ML) 10ML ONE (06:30)
[2019-04-26] MEDS ORDERED: BACITRACIN 50,000 UNITS/VIAL ONE (06:31)
[2019-04-26] MEDS ORDERED: THROMBIN (BOVINE) 5000 UNITS/VIAL TOP ONE (06:31)
[2019-04-26] MEDS ORDERED: ROPIVACAINE HCL 10MG/ML 20 ML VIAL EPI ONE (07:33)
[2019-04-26] MEDS ORDERED: PROPOFOL 200MG/20ML VIAL IV ONE (07:45)
[2019-04-26] MEDS ORDERED: CEFAZOLIN SODIUM 1000MG/VIAL ONE (07:45)
[2019-04-26] MEDS ORDERED: SUCCINYLCHOLINE CHLORIDE 200MG/10ML IV ONE (07:45)
[2019-04-26] MEDS ORDERED: MIDAZOLAM HCL 2 MG/2 ML VIAL ONE (07:45)
[2019-04-26] MEDS ORDERED: SODIUM CHLORIDE 0.9% 1,000 ML IV ONE (08:40)
[2019-04-26] MEDS ORDERED: HYDROMORPHONE HCL/PF 2MG/ML CPJ IV PRN (08:45)
[2019-04-26] MEDS ORDERED: ONDANSETRON HCL 4MG/2ML INJ IV PRN (08:45)
[2019-04-26 11:00] LABS: HEPATITIS B SURFACE AB 24.4 mIU/mL
[2019-04-26 11:11] LABS: HEPATITIS B SURFACE ANTIGEN NEGATIVE
[2019-04-26] MEDS ORDERED: HEPARIN SODIUM 1,000 UNIT/1ML VIAL IV NR (11:45)
[2019-04-26] MEDS ORDERED: HYDROCODONE/ACETAMINOPHEN 5/325MG TABLET PO PRN ×2 (17:00)
[2019-04-26] MEDS ORDERED: SODIUM CHLORIDE 0.9% INJ 3ML FLUSH IVF SCH (22:00)
[2019-04-27 06:07] LABS: HIV SCREEN 4G Non Reactive (Non Reactive)
== END 2019-04-26 11:20 | disposition home or self-care (01) ==
LOC: OR 05:24
PROVIDERS: ATTEND Surgery Vascular Surgery
DX: I12.0 Hypertensive chronic kidney disease with stage 5 chronic kidney disease or end stage renal disease (principal); E11.22 Type 2 diabetes mellitus with diabetic chronic kidney disease; E11.319 Type 2 diabetes mellitus with unspecified diabetic retinopathy without macular edema; E11.40 Type 2 diabetes mellitus with diabetic neuropathy, unspecified; E11.52 Type 2 diabetes mellitus with diabetic peripheral angiopathy with gangrene; N18.6 End stage renal disease; E78.00 Pure hypercholesterolemia, unspecified; I25.2 Old myocardial infarction; E66.01 Morbid (severe) obesity due to excess calories; I25.10 Atherosclerotic heart disease of native coronary artery without angina pectoris; F15.90 Other stimulant use, unspecified, uncomplicated; Z95.5 Presence of coronary angioplasty implant and graft; Z86.73 Personal history of transient ischemic attack (TIA), and cerebral infarction without residual deficits; Z98.890 Other specified postprocedural states; Z91.011 Allergy to milk products; Z79.899 Other long term (current) drug therapy; Z79.82 Long term (current) use of aspirin; Z79.4 Long term (current) use of insulin; Z79.84 Long term (current) use of oral hypoglycemic drugs; Z68.39 Body mass index [BMI] 39.0-39.9, adult; Z83.3 Family history of diabetes mellitus; Z82.49 Family history of ischemic heart disease and other diseases of the circulatory system
CPT/HCPCS: 35903; 36415; 80048; 82962; 85025; 85610; 85730; 87389; 88304; 93005; J0690; J1644; J2250; J2795; J3490; J7040; J0330; J2440; J2704

== ENCOUNTER 2019-05-12 14:10 | Inpatient (IN) | payer MEDICARE, MEDICAID ==
[~2019-05-12] VITALS: Ht 175.3 cm; Wt 121.1 kg
[2019-05-12] MEDS ORDERED: LIDOCAINE HCL 1% 20ML VIAL (Pyxis) INJ ONE (14:36)
[2019-05-12] MEDS ORDERED: THROMBIN (BOVINE) 5000 UNITS/VIAL TOP ONE (14:37)
[2019-05-12] MEDS ORDERED: HEPARIN SODIUM 1,000 UNIT/1ML VIAL IV ONE (14:37)
[2019-05-12] MEDS ORDERED: BUPIVACAINE HCL/PF 0.5% (5MG/ML) 10ML ONE (14:38)
[2019-05-12] MEDS ORDERED: BACITRACIN 50,000 UNITS/VIAL ONE (14:39)
[2019-05-12] MEDS ORDERED: PROPOFOL 200MG/20ML VIAL IV ONE ×2 (14:53→15:53)
[2019-05-12] MEDS ORDERED: MIDAZOLAM HCL 2 MG/2 ML VIAL ONE (14:53)
[2019-05-12] MEDS ORDERED: FENTANYL CITRATE/PF 50MCG/ML 2ML VIAL ONE ×2 (14:53→15:53)
[2019-05-12] MEDS ORDERED: BACITRACIN 15GM TUBE TOP ONE (14:57)
[2019-05-12] MEDS ORDERED: PIPERACILLIN/TAZ 3.375G PREMIX 50 ML IV ONE (15:00)
[2019-05-12] MEDS ORDERED: VANCOMYCIN 1 G PREMIX 200 ML IV ONE (15:00)
[2019-05-12 15:23] LABS: BASOPHILS % 1.1 % (0.0-2.0); EOSINOPHILS % 1.6 % (0.0-5.0); HEMATOCRIT. 33.5 % (42.0-52.0); HEMOGLOBIN. 11.1 g/dL (14.0-18.0); LYMPHOCYTES % 14.3 % (20.0-50.0); MEAN CORPUSCULAR HEMOGLOBIN 31.3 pg (28.0-32.0); MEAN CORPUSCULAR VOLUME 94.9 fL (80.0-94.0); MEAN PLATELET VOLUME 8.4 fl (7.4-10.4); MONOCYTES % 10.6 % (2.0-8.0); NEUTROPHILS % 72.4 % (40.0-76.0); PLATELET 219 x1000/uL (130-400); RED BLOOD CELL COUNT 3.53 mill/uL (4.7-6.1); RED CELL DISTRIBUTION WIDTH 16.1 % (11.6-14.6)
[2019-05-12 15:30] LABS: CHLORIDE 103 mEq/L (98-107)
[2019-05-12 15:33] LABS: PARTIAL THROMBOPLASTIN TIME 24.8 sec (23.4-31.0); PROTHROMBIN TIME 10.7 sec (9.6-11.0)
[2019-05-12] MEDS ORDERED: LIDOCAINE HCL/PF 1% 10 MG/ML 5ML VIAL ONE (15:54)
[2019-05-12] MEDS ORDERED: CEFAZOLIN SODIUM 1000MG/VIAL ONE (15:54)
[2019-05-12] MEDS ORDERED: EPHEDRINE SULFATE 50MG/ML VIAL ONE (16:07)
[2019-05-12] MEDS ORDERED: ONDANSETRON HCL 4MG/2ML INJ ONE (17:30)
[2019-05-12] MEDS ORDERED: DIPHENHYDRAMINE 50MG/ML VIAL IV PRN (18:15)
[2019-05-12] MEDS ORDERED: METOCLOPRAMIDE HCL 10MG/2ML VIAL IV PRN (18:15)
[2019-05-12] MEDS ORDERED: FENTANYL CITRATE/PF 50MCG/ML 2ML VIAL IV PRN (18:15)
[2019-05-12 21:00] VITALS: BP 104/53
[2019-05-12] MEDS ORDERED: MORPHINE SULFATE 2 MG/ML CPJ (NOT FOR IM USE) IV PRN (23:30)
[2019-05-12] MEDS ORDERED: CLONIDINE 0.2MG TABLET PO PRN (23:30)
[2019-05-12] MEDS ORDERED: ONDANSETRON HCL 4MG/2ML INJ IV PRN (23:30)
[2019-05-12] MEDS ORDERED: DEXTROSE 50% WATER 50ML SYRINGE IV PRN (23:30)
[2019-05-13] VITALS: BP 120/59
[2019-05-13 04:00] VITALS: BP 129/51
[2019-05-13 07:48] LABS: BASOPHILS % 0.3 % (0.0-2.0); EOSINOPHILS % 0.8 % (0.0-5.0); HEMATOCRIT. 29.1 % (42.0-52.0); HEMOGLOBIN. 9.7 g/dL (14.0-18.0); MEAN CORPUSCULAR HEMOGLOBIN 31.6 pg (28.0-32.0); MEAN CORPUSCULAR VOLUME 94.4 fL (80.0-94.0); MEAN PLATELET VOLUME 8.6 fl (7.4-10.4); MONOCYTES % 9.6 % (2.0-8.0); NEUTROPHILS % 80.3 % (40.0-76.0); PLATELET 195 x1000/uL (130-400); RED BLOOD CELL COUNT 3.08 mill/uL (4.7-6.1); RED CELL DISTRIBUTION WIDTH 16.2 % (11.6-14.6)
[2019-05-13 08:00] VITALS: BP 93/28
[2019-05-13] MEDS: INSULIN LISPRO 100 UNITS/ML SUBCUT SCH ×4 (08:10→21:10)
[2019-05-13] MEDS: BLOOD SUGAR DIAGNOSTIC STRIP TEST SCH ×4 (08:21→21:09)
[2019-05-13] MEDS: FOLIC ACID 1MG TABLET PO SCH (08:58)
[2019-05-13] MEDS: ASPIRIN 81MG TABLET PO SCH (08:59)
[2019-05-13] MEDS: EZETIMIBE 10MG TABLET PO SCH (08:59)
[2019-05-13] MEDS: CLOPIDOGREL 75MG TABLET PO SCH (08:59)
[2019-05-13] MEDS: DOCUSATE SODIUM 100MG CAPSULE PO SCH ×2 (08:59→17:59)
[2019-05-13] MEDS ORDERED: MEDICATION NOT ON FORMULARY EA (Atorvastatin Calcium 1 TAB) MT SCH (09:00)
[2019-05-13] MEDS: ACETAMINOPHEN 325MG TABLET PO PRN ×2 (09:05→21:08)
[2019-05-13] MEDS: GLIMEPIRIDE 1MG TABLET PO SCH ×2 (10:44→17:59)
[2019-05-13] MEDS: CALCIUM ACETATE 667MG CAPSULE PO SCH ×3 (10:44→17:59)
[2019-05-13 12:00] VITALS: BP 141/64
[2019-05-13] MEDS: CARVEDILOL 3.125 MG TABLET PO SCH ×2 (13:05→21:07)
[2019-05-13 16:00] VITALS: BP 112/69
[2019-05-13 20:00] VITALS: BP 113/59
[2019-05-13] MEDS: ATORVASTATIN CALCIUM 40MG TABLET PO SCH (21:08)
[2019-05-14] VITALS: BP 123/54
[2019-05-14 04:00] VITALS: BP 131/57
[2019-05-14] MEDS: BLOOD SUGAR DIAGNOSTIC STRIP TEST SCH ×4 (07:40→21:33)
[2019-05-14 08:00] VITALS: BP 115/68
[2019-05-14] MEDS: INSULIN LISPRO 100 UNITS/ML SUBCUT SCH ×4 (08:10→21:32)
[2019-05-14] MEDS: GLIMEPIRIDE 1MG TABLET PO SCH ×2 (10:00→18:52)
[2019-05-14] MEDS: DOCUSATE SODIUM 100MG CAPSULE PO SCH ×2 (10:00→18:52)
[2019-05-14] MEDS: CALCIUM ACETATE 667MG CAPSULE PO SCH ×3 (10:00→18:52)
[2019-05-14] MEDS: ASPIRIN 81MG TABLET PO SCH (10:00)
[2019-05-14] MEDS: EZETIMIBE 10MG TABLET PO SCH (10:00)
[2019-05-14] MEDS: CLOPIDOGREL 75MG TABLET PO SCH (10:00)
[2019-05-14] MEDS: ACETAMINOPHEN 325MG TABLET PO PRN (10:37)
[2019-05-14] MEDS: CARVEDILOL 3.125 MG TABLET PO SCH ×2 (10:37→21:32)
[2019-05-14] MEDS: FOLIC ACID 1MG TABLET PO SCH (10:38)
[2019-05-14 12:00] VITALS: BP 94/19
[2019-05-14] MEDS ORDERED: PIPERACILLIN/TAZOBACTAM 2.25 G in DEXTROSE 5% WATER 50 ML IV SCH (12:00)
[2019-05-14] MEDS ORDERED: AMIKACIN SULFATE 750 MG in SODIUM CHLORIDE 0.9% 100 ML IV NR (12:30)
[2019-05-14 16:00] VITALS: BP 105/80
[2019-05-14] MEDS: CEFTRIAXONE 2 G in DEXT 5% WATER 100 ML IV SCH (18:53)
[2019-05-14 20:00] VITALS: BP 120/58
[2019-05-14] MEDS: ATORVASTATIN CALCIUM 40MG TABLET PO SCH (21:32)
[2019-05-15] VITALS (7 sets, daily range): BP systolic 108–152; BP diastolic 37–86
[2019-05-15 06:30] LABS: HEMATOCRIT. 28.3 % (42.0-52.0); HEMOGLOBIN. 9.3 g/dL (14.0-18.0); MEAN CORPUSCULAR HEMOGLOBIN 30.9 pg (28.0-32.0); MEAN CORPUSCULAR VOLUME 94.5 fL (80.0-94.0); MEAN PLATELET VOLUME 9.1 fl (7.4-10.4); PLATELET 190 x1000/uL (130-400); RED CELL DISTRIBUTION WIDTH 15.5 % (11.6-14.6)
[2019-05-15] MEDS: INSULIN LISPRO 100 UNITS/ML SUBCUT SCH ×4 (07:58→20:53)
[2019-05-15] MEDS: BLOOD SUGAR DIAGNOSTIC STRIP TEST SCH ×4 (07:58→20:48)
[2019-05-15] MEDS: CALCIUM ACETATE 667MG CAPSULE PO SCH ×3 (09:37→17:48)
[2019-05-15] MEDS: CLOPIDOGREL 75MG TABLET PO SCH (09:37)
[2019-05-15] MEDS: EZETIMIBE 10MG TABLET PO SCH (09:37)
[2019-05-15] MEDS: GLIMEPIRIDE 1MG TABLET PO SCH ×2 (09:37→17:44)
[2019-05-15] MEDS: FOLIC ACID 1MG TABLET PO SCH (09:37)
[2019-05-15] MEDS: DOCUSATE SODIUM 100MG CAPSULE PO SCH ×2 (09:37→17:48)
[2019-05-15] MEDS: ASPIRIN 81MG TABLET PO SCH (09:38)
[2019-05-15] MEDS: CARVEDILOL 3.125 MG TABLET PO SCH ×2 (09:38→20:45)
[2019-05-15 15:28] LABS: PLATELET ESTIMATE NORMAL
[2019-05-15] MEDS: CEFTRIAXONE 2 G in DEXT 5% WATER 100 ML IV SCH (19:10)
[2019-05-15] MEDS: ATORVASTATIN CALCIUM 40MG TABLET PO SCH (20:44)
[2019-05-16] VITALS: BP 137/95
[2019-05-16 04:00] VITALS: BP 147/55
[2019-05-16] MEDS: BLOOD SUGAR DIAGNOSTIC STRIP TEST SCH ×2 (07:02→12:40)
[2019-05-16 08:00] VITALS: BP 203/44
[2019-05-16] MEDS: INSULIN LISPRO 100 UNITS/ML SUBCUT SCH ×2 (08:10→13:10)
[2019-05-16] MEDS: GLIMEPIRIDE 1MG TABLET PO SCH (10:12)
[2019-05-16] MEDS: CLOPIDOGREL 75MG TABLET PO SCH (10:12)
[2019-05-16] MEDS: EZETIMIBE 10MG TABLET PO SCH (10:12)
[2019-05-16] MEDS: CALCIUM ACETATE 667MG CAPSULE PO SCH ×2 (10:12→13:00)
[2019-05-16] MEDS: ASPIRIN 81MG TABLET PO SCH (10:13)
[2019-05-16] MEDS: DOCUSATE SODIUM 100MG CAPSULE PO SCH (10:13)
[2019-05-16] MEDS: FOLIC ACID 1MG TABLET PO SCH (10:13)
[2019-05-16] MEDS: CARVEDILOL 3.125 MG TABLET PO SCH (10:19)
[2019-05-16 10:22] LABS: BASOPHILS % 0.7 % (0.0-2.0); EOSINOPHILS % 0.7 % (0.0-5.0); HEMATOCRIT. 28.3 % (42.0-52.0); HEMOGLOBIN. 9.3 g/dL (14.0-18.0); LYMPHOCYTES % 10.4 % (20.0-50.0); MEAN CORPUSCULAR HEMOGLOBIN 31.2 pg (28.0-32.0); MEAN CORPUSCULAR VOLUME 94.7 fL (80.0-94.0); MONOCYTES % 13.4 % (2.0-8.0); NEUTROPHILS % 74.8 % (40.0-76.0); PLATELET 216 x1000/uL (130-400); RED BLOOD CELL COUNT 2.99 mill/uL (4.7-6.1)
[2019-05-16] MEDS: ACETAMINOPHEN 325MG TABLET PO PRN ×2 (10:22→16:21)
[2019-05-16] MEDS ORDERED: SULF1TAB48 MT (13:52)
[2019-05-16 15:48] VITALS: BP 152/52
[2019-05-16 16:00] VITALS: BP 152/52
[2019-05-16] MEDS: CEFTRIAXONE 2 G in DEXT 5% WATER 100 ML IV SCH (16:20)
== END 2019-05-16 17:49 | disposition home health service (06) | DRG 252 ==
LOC: ER 14:10 → ORIP 15:32 → UNDOADMIN 15:32 → OR 15:50 → 7WST 22:48
PROVIDERS: ADMIT Family Medicine Adult Medicine; ATTEND Family Medicine Adult Medicine
PROC: 03PY0JZ Removal of Synthetic Substitute from Upper Artery, Open Approach (ICD-10-PCS; principal; 2019-05-12)
PROC: 03U80JZ Supplement Left Brachial Artery with Synthetic Substitute, Open Approach (ICD-10-PCS; 2019-05-12)
PROC: 03CC0ZZ Extirpation of Matter from Left Radial Artery, Open Approach (ICD-10-PCS; 2019-05-12)
PROC: 5A1D70Z Performance of Urinary Filtration, Intermittent, Less than 6 Hours Per Day (ICD-10-PCS; 2019-05-14)
DX: T82.7XXA Infection and inflammatory reaction due to other cardiac and vascular devices, implants and grafts, initial encounter (principal); N18.6 End stage renal disease; I13.2 Hypertensive heart and chronic kidney disease with heart failure and with stage 5 chronic kidney disease, or end stage renal disease; Y83.2 Surgical operation with anastomosis, bypass or graft as the cause of abnormal reaction of the patient, or of later complication, without mention of misadventure at the time of the procedure; D64.9 Anemia, unspecified; E11.22 Type 2 diabetes mellitus with diabetic chronic kidney disease; E11.51 Type 2 diabetes mellitus with diabetic peripheral angiopathy without gangrene; I25.10 Atherosclerotic heart disease of native coronary artery without angina pectoris; I25.5 Ischemic cardiomyopathy; E78.00 Pure hypercholesterolemia, unspecified; I50.9 Heart failure, unspecified; Z79.4 Long term (current) use of insulin; Z95.1 Presence of aortocoronary bypass graft; Z79.02 Long term (current) use of antithrombotics/antiplatelets; Z99.2 Dependence on renal dialysis; Z79.899 Other long term (current) drug therapy; Z82.49 Family history of ischemic heart disease and other diseases of the circulatory system
CPT/HCPCS: 36415; 80048; 82962; 83605; 84484; 87070; 87077; 87186; 88304; 99285; J0278; J0690; J0696; J1644; J1815; J2250; J2270; J2405; J2543; J2704; J3010; J3370; J3490; J7040; J7050; J7060

== ENCOUNTER 2020-10-29 12:05 | Emergency (ER) | payer MEDICARE, MEDICAID ==
[~2020-10-29] VITALS: Ht 170.2 cm; Wt 96.0 kg
[~2020-10-29 12:05] MED LIST changes: +GLIM1TAB PO; -GLIM1TAB2 PO; +SULF1TAB48 MT
[2020-10-29] MEDS ORDERED: HYDROCODONE/ACETAMINOPHEN 5/325MG TABLET PO ONE (13:15)
[2020-10-29] MEDS ORDERED: ACET650T37 MT (15:43)
[2020-10-29 16:05] VITALS: BP 153/67
== END 2020-10-29 16:06 | disposition home or self-care (01) ==
LOC: ER 12:05
DX: M25.521 Pain in right elbow (principal); I12.0 Hypertensive chronic kidney disease with stage 5 chronic kidney disease or end stage renal disease; N18.6 End stage renal disease; Z99.2 Dependence on renal dialysis
CPT/HCPCS: 71045; 73080; 73090; 99284; A4565

== ENCOUNTER 2021-04-24 05:12 | Inpatient (IN) | payer MEDICARE, MEDICAID ==
[~2021-04-24] VITALS: Ht 167.6 cm; Wt 111.1 kg
[~2021-04-24 05:12] MED LIST changes: +ACET650T37 MT
[2021-04-24 06:20] LABS: CHLORIDE 96 mEq/L (98-107)
[2021-04-24 06:23] LABS: HEMATOCRIT. 36.9 % (42.0-52.0); HEMOGLOBIN. 11.6 g/dL (14.0-18.0); MEAN CORPUSCULAR HEMOGLOBIN 30.6 pg (28.0-32.0); MEAN CORPUSCULAR VOLUME 96.9 fL (80.0-94.0); MEAN PLATELET VOLUME 8.9 fl (7.4-10.4); PLATELET 224 x1000/uL (130-400); RED BLOOD CELL COUNT 3.81 mill/uL (4.7-6.1); RED CELL DISTRIBUTION WIDTH 16.1 % (11.6-14.6)
[2021-04-24] MEDS ORDERED: PIPERACILLIN/TAZ 3.375G PREMIX 50 ML IV ONE (06:30)
[2021-04-24] MEDS ORDERED: VANCOMYCIN 1 G PREMIX 200 ML IV ONE (06:30)
[2021-04-24] MEDS ORDERED: ACETAMINOPHEN 325MG TABLET PO PRN (08:30)
[2021-04-24] MEDS ORDERED: DEXTROSE 50% WATER 50ML SYRINGE IV ONE (08:30)
[2021-04-24] MEDS ORDERED: INSULIN REGULAR (HUMULIN R) 300UNITS/3ML VIAL IV ONE (08:30)
[2021-04-24] MEDS ORDERED: SODIUM BICARBONATE 8.4% 1 MEQ/ML 50ML SYR IV ONE (08:30)
[2021-04-24] MEDS ORDERED: CALCIUM CHLORIDE 1GM/10ML SYR IV ONE (08:30)
[2021-04-24] MEDS ORDERED: ALBUTEROL (0.083%) 2.5MG/3ML NEB HHN ONE (08:30)
[2021-04-24] MEDS ORDERED: DEXTROSE 50% WATER 50ML SYRINGE IV PRN (08:45)
[2021-04-24] MEDS ORDERED: CEFEPIME 1,000 MG in DEXTROSE 5% WATER 50 ML IV SCH ×2 (09:00→16:00)
[2021-04-24] MEDS ORDERED: VANCOMYCIN 1 G PREMIX 200 ML IV SCH ×2 (10:00→17:00)
[2021-04-24 10:05] VITALS: BP 161/78
[2021-04-24 10:11] LABS: PLATELET ESTIMATE NORMAL
[2021-04-24 12:00] VITALS: BP 119/64
[2021-04-24] MEDS: BLOOD SUGAR DIAGNOSTIC STRIP TEST SCH ×3 (12:10→21:51)
[2021-04-24 12:13] LABS: HEPATITIS B SURFACE ANTIGEN NEGATIVE
[2021-04-24] MEDS: INSULIN LISPRO 100 UNITS/ML SUBCUT SCH ×4 (14:23→21:48)
[2021-04-24] MEDS ORDERED: PNEUMOCOCCAL 23-VAL P-SAC VAC 0.5 ML IM ONE (15:00)
[2021-04-24 16:00] VITALS: BP 148/61
[2021-04-24] MEDS: ASPIRIN 81MG TABLET PO SCH (16:36)
[2021-04-24] MEDS: CLOPIDOGREL 75MG TABLET PO SCH (16:36)
[2021-04-24] MEDS: HEPARIN 5000 UNITS/ML VIAL SUBCUT SCH (17:43)
[2021-04-24 20:00] VITALS: BP 133/55
[2021-04-24] MEDS: ATORVASTATIN CALCIUM 40MG TABLET PO SCH (21:46)
[2021-04-24] MEDS: CARVEDILOL 3.125 MG TABLET PO SCH (21:46)
[2021-04-24] MEDS ORDERED: INSULIN GLARGINE UD 100 UNITS/ML SYR SUBCUT SCH (22:00)
[2021-04-25] VITALS: BP 130/60
[2021-04-25 04:00] VITALS: BP 153/70
[2021-04-25 06:21] LABS: HEMATOCRIT. 33.2 % (42.0-52.0); HEMOGLOBIN. 10.8 g/dL (14.0-18.0); MEAN CORPUSCULAR HEMOGLOBIN 31.4 pg (28.0-32.0); MEAN CORPUSCULAR VOLUME 96.4 fL (80.0-94.0); MEAN PLATELET VOLUME 8.7 fl (7.4-10.4); PLATELET 173 x1000/uL (130-400); RED BLOOD CELL COUNT 3.44 mill/uL (4.7-6.1); RED CELL DISTRIBUTION WIDTH 16.2 % (11.6-14.6)
[2021-04-25] MEDS: HEPARIN 5000 UNITS/ML VIAL SUBCUT SCH ×2 (06:46→19:44)
[2021-04-25] MEDS: BLOOD SUGAR DIAGNOSTIC STRIP TEST SCH ×4 (06:52→19:44)
[2021-04-25] MEDS: INSULIN LISPRO 100 UNITS/ML SUBCUT SCH ×4 (06:53→21:44)
[2021-04-25 08:00] VITALS: BP 144/69
[2021-04-25] MEDS: ASPIRIN 81MG TABLET PO SCH (09:40)
[2021-04-25] MEDS: CARVEDILOL 3.125 MG TABLET PO SCH ×2 (09:50→21:43)
[2021-04-25] MEDS: CLOPIDOGREL 75MG TABLET PO SCH (09:51)
[2021-04-25 12:00] VITALS: BP 153/65
[2021-04-25 12:33] LABS: PLATELET ESTIMATE NORMAL
[2021-04-25 16:00] VITALS: BP 164/71
[2021-04-25] MEDS: CEFEPIME 1,000 MG in DEXTROSE 5% WATER 50 ML IV SCH (17:29)
[2021-04-25 20:00] VITALS: BP 141/65
[2021-04-25] MEDS: ATORVASTATIN CALCIUM 40MG TABLET PO SCH (21:43)
[2021-04-25] MEDS: INSULIN GLARGINE UD 100 UNITS/ML SYR SUBCUT SCH (21:50)
[2021-04-26] VITALS: BP 127/52
[2021-04-26 04:00] VITALS: BP 117/62
[2021-04-26] MEDS: BLOOD SUGAR DIAGNOSTIC STRIP TEST SCH ×4 (05:05→18:05)
[2021-04-26] MEDS: INSULIN LISPRO 100 UNITS/ML SUBCUT SCH ×3 (05:07→18:46)
[2021-04-26] MEDS: HEPARIN 5000 UNITS/ML VIAL SUBCUT SCH ×2 (05:08→18:30)
[2021-04-26] MEDS ORDERED: DEXTROSE 50% WATER 50ML SYRINGE IV PRN (07:45)
[2021-04-26 08:00] VITALS: BP 92/32
[2021-04-26 08:05] LABS: HEMATOCRIT. 32.9 % (42.0-52.0); HEMOGLOBIN. 10.8 g/dL (14.0-18.0); MEAN CORPUSCULAR HEMOGLOBIN 31.8 pg (28.0-32.0); MEAN CORPUSCULAR VOLUME 96.7 fL (80.0-94.0); MEAN PLATELET VOLUME 8.6 fl (7.4-10.4); PLATELET 191 x1000/uL (130-400); RED CELL DISTRIBUTION WIDTH 15.6 % (11.6-14.6)
[2021-04-26 08:42] LABS: VITAMIN B12 SERUM 539 pg/mL (211-911)
[2021-04-26 11:53] LABS: PLATELET ESTIMATE NORMAL
[2021-04-26] MEDS: INSULIN LISPRO (LOW DOSE) 100 UNITS/ML SUBCUT SCH ×2 (11:58→17:10)
[2021-04-26 12:00] VITALS: BP 133/38
[2021-04-26] MEDS: CLOPIDOGREL 75MG TABLET PO SCH (12:06)
[2021-04-26] MEDS ORDERED: INSULIN LISPRO 100 UNITS/ML SUBCUT SCH (12:10)
[2021-04-26] MEDS: CARVEDILOL 3.125 MG TABLET PO SCH ×2 (12:18→20:36)
[2021-04-26] MEDS: ASPIRIN 81MG TABLET PO SCH (12:18)
[2021-04-26 16:00] VITALS: BP 139/48
[2021-04-26] MEDS ORDERED: VANCOMYCIN 1 G PREMIX 200 ML IV NR (18:00)
[2021-04-26] MEDS: CEFEPIME 1,000 MG in DEXTROSE 5% WATER 50 ML IV SCH (18:13)
[2021-04-26 20:00] VITALS: BP 180/67
[2021-04-26] MEDS: CLONIDINE 0.1MG TABLET PO PRN (20:36)
[2021-04-26] MEDS: ATORVASTATIN CALCIUM 40MG TABLET PO SCH (20:36)
[2021-04-26] MEDS: INSULIN GLARGINE UD 100 UNITS/ML SYR SUBCUT SCH (21:33)
[2021-04-27] VITALS (8 sets, daily range): BP systolic 110–176; BP diastolic 53–80
[2021-04-27] MEDS: HEPARIN 5000 UNITS/ML VIAL SUBCUT SCH ×2 (05:51→17:39)
[2021-04-27] MEDS: INSULIN LISPRO (LOW DOSE) 100 UNITS/ML SUBCUT SCH ×3 (06:22→17:40)
[2021-04-27] MEDS: BLOOD SUGAR DIAGNOSTIC STRIP TEST SCH ×3 (06:23→17:20)
[2021-04-27] MEDS: INSULIN LISPRO 100 UNITS/ML SUBCUT SCH ×3 (06:23→17:41)
[2021-04-27] MEDS: ASPIRIN 81MG TABLET PO SCH (09:23)
[2021-04-27] MEDS: CLOPIDOGREL 75MG TABLET PO SCH (09:23)
[2021-04-27] MEDS: CARVEDILOL 3.125 MG TABLET PO SCH ×2 (09:24→21:26)
[2021-04-27] MEDS: CLONIDINE 0.1MG TABLET PO PRN (09:36)
[2021-04-27] MEDS: CEFEPIME 1,000 MG in DEXTROSE 5% WATER 50 ML IV SCH (17:38)
[2021-04-27] MEDS ORDERED: DOCUSATE SODIUM 100MG CAPSULE PO PRN (19:00)
[2021-04-27] MEDS ORDERED: LACTULOSE 20G/30ML UDC PO PRN (19:00)
[2021-04-27] MEDS: ATORVASTATIN CALCIUM 40MG TABLET PO SCH (21:26)
[2021-04-27] MEDS: INSULIN GLARGINE UD 100 UNITS/ML SYR SUBCUT SCH (21:27)
[2021-04-28 04:00] VITALS: BP 125/46
[2021-04-28] MEDS: HEPARIN 5000 UNITS/ML VIAL SUBCUT SCH ×2 (05:41→17:23)
[2021-04-28] MEDS: BLOOD SUGAR DIAGNOSTIC STRIP TEST SCH ×3 (06:52→16:23)
[2021-04-28] MEDS: INSULIN LISPRO (LOW DOSE) 100 UNITS/ML SUBCUT SCH ×3 (07:10→17:46)
[2021-04-28 08:00] VITALS: BP 141/115
[2021-04-28] MEDS: CARVEDILOL 3.125 MG TABLET PO SCH ×2 (09:06→21:24)
[2021-04-28] MEDS: ASPIRIN 81MG TABLET PO SCH (09:06)
[2021-04-28] MEDS: CLOPIDOGREL 75MG TABLET PO SCH (09:06)
[2021-04-28] MEDS: INSULIN LISPRO 100 UNITS/ML SUBCUT SCH ×3 (09:20→17:46)
[2021-04-28 12:00] VITALS: BP 166/67
[2021-04-28] MEDS: CLONIDINE 0.1MG TABLET PO PRN (13:50)
[2021-04-28] MEDS: CEFEPIME 1,000 MG in DEXTROSE 5% WATER 50 ML IV SCH (15:34)
[2021-04-28 16:06] VITALS: BP 120/54
[2021-04-28 20:00] VITALS: BP 144/50
[2021-04-28] MEDS: ATORVASTATIN CALCIUM 40MG TABLET PO SCH (21:23)
[2021-04-28] MEDS: INSULIN GLARGINE UD 100 UNITS/ML SYR SUBCUT SCH (21:25)
[2021-04-29] VITALS: BP 118/44
[2021-04-29 04:00] VITALS: BP 152/68
[2021-04-29] MEDS: HEPARIN 5000 UNITS/ML VIAL SUBCUT SCH ×2 (05:32→17:26)
[2021-04-29 06:44] LABS: BASOPHILS % 0.8 % (0.0-2.0); EOSINOPHILS % 2.9 % (0.0-5.0); HEMATOCRIT. 34.1 % (42.0-52.0); HEMOGLOBIN. 11.2 g/dL (14.0-18.0); LYMPHOCYTES % 17.1 % (20.0-50.0); MEAN CORPUSCULAR HEMOGLOBIN 31.3 pg (28.0-32.0); MEAN CORPUSCULAR VOLUME 95.6 fL (80.0-94.0); MEAN PLATELET VOLUME 9.2 fl (7.4-10.4); MONOCYTES % 9.9 % (2.0-8.0); NEUTROPHILS % 69.3 % (40.0-76.0); PLATELET 220 x1000/uL (130-400); RED BLOOD CELL COUNT 3.57 mill/uL (4.7-6.1); RED CELL DISTRIBUTION WIDTH 15.7 % (11.6-14.6)
[2021-04-29] MEDS: INSULIN LISPRO (LOW DOSE) 100 UNITS/ML SUBCUT SCH ×4 (07:10→21:16)
[2021-04-29] MEDS: BLOOD SUGAR DIAGNOSTIC STRIP TEST SCH ×3 (07:12→17:10)
[2021-04-29] MEDS: INSULIN LISPRO 100 UNITS/ML SUBCUT SCH ×4 (07:46→17:25)
[2021-04-29 08:00] VITALS: BP 160/69
[2021-04-29] MEDS: CLOPIDOGREL 75MG TABLET PO SCH (08:40)
[2021-04-29] MEDS: ASPIRIN 81MG TABLET PO SCH (08:40)
[2021-04-29] MEDS: CARVEDILOL 3.125 MG TABLET PO SCH ×2 (09:00→21:14)
[2021-04-29 12:00] VITALS: BP 137/70
[2021-04-29] MEDS: CEFEPIME 1,000 MG in DEXTROSE 5% WATER 50 ML IV SCH (15:28)
[2021-04-29] MEDS: CLONIDINE 0.1MG TABLET PO PRN (15:38)
[2021-04-29 16:00] VITALS: BP 177/76
[2021-04-29 20:00] VITALS: BP 160/89
[2021-04-29] MEDS: ATORVASTATIN CALCIUM 40MG TABLET PO SCH (21:14)
[2021-04-29] MEDS: INSULIN GLARGINE UD 100 UNITS/ML SYR SUBCUT SCH (21:19)
[2021-04-30] VITALS: BP 135/66
[2021-04-30] MEDS: BLOOD SUGAR DIAGNOSTIC STRIP TEST SCH ×3 (05:29→17:22)
[2021-04-30] MEDS: HEPARIN 5000 UNITS/ML VIAL SUBCUT SCH ×2 (06:01→18:18)
[2021-04-30] MEDS: INSULIN LISPRO 100 UNITS/ML SUBCUT SCH ×3 (06:07→18:20)
[2021-04-30 08:00] VITALS: BP 143/57
[2021-04-30] MEDS: CARVEDILOL 3.125 MG TABLET PO SCH ×2 (08:40→21:01)
[2021-04-30] MEDS: AMLODIPINE 10MG TABLET PO SCH (09:41)
[2021-04-30 12:00] VITALS: BP 173/74
[2021-04-30] MEDS: INSULIN LISPRO (LOW DOSE) 100 UNITS/ML SUBCUT SCH ×2 (13:19→18:21)
[2021-04-30] MEDS: CLONIDINE 0.1MG TABLET PO PRN (13:20)
[2021-04-30 16:00] VITALS: BP 118/45
[2021-04-30] MEDS ORDERED: CEFEPIME 1,000 MG in DEXTROSE 5% WATER 50 ML IV SCH (16:00)
[2021-04-30 17:00] LABS: BASOPHILS % 0.6 % (0.0-2.0); EOSINOPHILS % 2.2 % (0.0-5.0); HEMATOCRIT. 31.9 % (42.0-52.0); HEMOGLOBIN. 10.4 g/dL (14.0-18.0); LYMPHOCYTES % 14.1 % (20.0-50.0); MEAN CORPUSCULAR HEMOGLOBIN 30.7 pg (28.0-32.0); MEAN CORPUSCULAR VOLUME 93.6 fL (80.0-94.0); MEAN PLATELET VOLUME 8.5 fl (7.4-10.4); MONOCYTES % 7.6 % (2.0-8.0); NEUTROPHILS % 75.5 % (40.0-76.0); PLATELET 217 x1000/uL (130-400); RED CELL DISTRIBUTION WIDTH 15.9 % (11.6-14.6)
[2021-04-30 20:00] VITALS: BP 134/77
[2021-04-30] MEDS: ATORVASTATIN CALCIUM 40MG TABLET PO SCH (21:01)
[2021-04-30] MEDS: INSULIN GLARGINE UD 100 UNITS/ML SYR SUBCUT SCH (21:05)
[2021-05-01] VITALS: BP 118/71
[2021-05-01 04:00] VITALS: BP 135/56
[2021-05-01] MEDS: BLOOD SUGAR DIAGNOSTIC STRIP TEST SCH ×2 (05:21→12:10)
[2021-05-01] MEDS: HEPARIN 5000 UNITS/ML VIAL SUBCUT SCH (05:47)
[2021-05-01] MEDS: INSULIN LISPRO 100 UNITS/ML SUBCUT SCH (05:51)
[2021-05-01] MEDS: INSULIN LISPRO (LOW DOSE) 100 UNITS/ML SUBCUT SCH ×2 (05:51→15:33)
[2021-05-01 08:00] VITALS: BP 139/55
[2021-05-01] MEDS: AMLODIPINE 10MG TABLET PO SCH (08:30)
[2021-05-01] MEDS: CARVEDILOL 3.125 MG TABLET PO SCH (08:30)
[2021-05-01] MEDS ORDERED: AMLO10TA80 PO (09:52)
[2021-05-01] MEDS ORDERED: LEVO500T89 MT (09:52)
[2021-05-01 12:00] VITALS: BP 165/98
[2021-05-01 12:29] VITALS: BP 185/98
[2021-05-01 13:15] LABS: BASOPHILS % 0.5 % (0.0-2.0); EOSINOPHILS % 2.1 % (0.0-5.0); HEMATOCRIT. 33.7 % (42.0-52.0); HEMOGLOBIN. 10.9 g/dL (14.0-18.0); LYMPHOCYTES % 13.7 % (20.0-50.0); MEAN CORPUSCULAR HEMOGLOBIN 30.9 pg (28.0-32.0); MEAN CORPUSCULAR VOLUME 95.7 fL (80.0-94.0); MEAN PLATELET VOLUME 9.4 fl (7.4-10.4); MONOCYTES % 10.6 % (2.0-8.0); NEUTROPHILS % 73.1 % (40.0-76.0); PLATELET 213 x1000/uL (130-400); RED BLOOD CELL COUNT 3.52 mill/uL (4.7-6.1); RED CELL DISTRIBUTION WIDTH 15.9 % (11.6-14.6)
== END 2021-05-01 16:27 | disposition home or self-care (01) | DRG 871 ==
LOC: ER 05:39 → 8WST 09:07 → EDBEDREQSVC 09:13 → EDBEDREQ 09:13 → EDBEDREQTM 09:13 → ENRESERV 09:40
PROVIDERS: ADMIT Internal Medicine; ATTEND Internal Medicine
PROC: 5A1D70Z Performance of Urinary Filtration, Intermittent, Less than 6 Hours Per Day (ICD-10-PCS; principal; 2021-04-24)
PROC: 5A1D70Z Performance of Urinary Filtration, Intermittent, Less than 6 Hours Per Day (ICD-10-PCS; 2021-04-26)
PROC: 5A1D70Z Performance of Urinary Filtration, Intermittent, Less than 6 Hours Per Day (ICD-10-PCS; 2021-04-29)
PROC: 5A1D70Z Performance of Urinary Filtration, Intermittent, Less than 6 Hours Per Day (ICD-10-PCS; 2021-04-30)
DX: A41.9 Sepsis, unspecified organism (principal); N18.6 End stage renal disease; T87.41 Infection of amputation stump, right upper extremity; E87.1 Hypo-osmolality and hyponatremia; I13.2 Hypertensive heart and chronic kidney disease with heart failure and with stage 5 chronic kidney disease, or end stage renal disease; I42.9 Cardiomyopathy, unspecified; I25.810 Atherosclerosis of coronary artery bypass graft(s) without angina pectoris; M86.8X4 Other osteomyelitis, hand; E87.5 Hyperkalemia; I50.9 Heart failure, unspecified; I25.10 Atherosclerotic heart disease of native coronary artery without angina pectoris; E78.00 Pure hypercholesterolemia, unspecified; D63.8 Anemia in other chronic diseases classified elsewhere; E11.51 Type 2 diabetes mellitus with diabetic peripheral angiopathy without gangrene; E11.22 Type 2 diabetes mellitus with diabetic chronic kidney disease; E11.319 Type 2 diabetes mellitus with unspecified diabetic retinopathy without macular edema; E66.9 Obesity, unspecified; E78.5 Hyperlipidemia, unspecified; H54.8 Legal blindness, as defined in USA; E11.69 Type 2 diabetes mellitus with other specified complication; E11.65 Type 2 diabetes mellitus with hyperglycemia; Y83.5 Amputation of limb(s) as the cause of abnormal reaction of the patient, or of later complication, without mention of misadventure at the time of the procedure; Z91.011 Allergy to milk products; Z89.511 Acquired absence of right leg below knee; Z89.021 Acquired absence of right finger(s); Z99.2 Dependence on renal dialysis; I25.2 Old myocardial infarction; Z95.1 Presence of aortocoronary bypass graft; Z89.022 Acquired absence of left finger(s); Z79.02 Long term (current) use of antithrombotics/antiplatelets; Z79.4 Long term (current) use of insulin; Z82.3 Family history of stroke; Z83.3 Family history of diabetes mellitus; Z87.891 Personal history of nicotine dependence; Z89.612 Acquired absence of left leg above knee; Z68.39 Body mass index [BMI] 39.0-39.9, adult; Z79.899 Other long term (current) drug therapy; Z79.82 Long term (current) use of aspirin; Y92.89 Other specified places as the place of occurrence of the external cause
CPT/HCPCS: 36415; 71045; 73120; 73221; 80048; 80053; 80202; 82533; 82607; 82962; 83036; 83605; 83735; 84145; 84439; 84443; 84484; 85025; 85651; 86140; 86376; 86705; 86709; 86803; 87070; 87077; 87340; 93005; 93306; 99291; J0692; J1644; J1815; J2543; J3370; J7040; J7060